=== PATIENT | female | born 1960 | race Two or more races ===

== ENCOUNTER 2021-02-11 11:59 | Outpatient (CLI) | payer OTHER ==
[2021-02-18] MEDS ORDERED: ASPI-992 PO (11:11)
[2021-02-18] MEDS ORDERED: RIVA10TA PO (11:11)
== END 2021-02-11 23:59 | disposition home or self-care (01) ==
LOC: LAB 11:59
PROVIDERS: ATTEND Specialist
DX: Z01.812 Encounter for preprocedural laboratory examination (principal); Z20.822 Contact with and (suspected) exposure to COVID-19
CPT/HCPCS: C9803; U0003

== ENCOUNTER 2021-02-16 05:08 | Inpatient (IN) | payer OTHER ==
[~2021-02-16] VITALS: Ht 160 cm; Wt 106.1 kg
--- NOTE | 2021-02-16 05:25 | NUR ---
MS RN ADMITTING NOTES PATIENT ARRIVED TO THE UNIT AT APPROXIMATELY 0525. PATIENT WAS ABLE TO WALK INDEPENDENTLY TO HIS ROOM. PATIENT WAS ORIENTED TO THE STAFF AND ROOM. PATIENT'S ALERT AND ORIENTED X4. PATIENT'S STABLE ON ROOM AIR. IV ACCESS WILL BE INSERTED IN SURGERY. PATIENT'S IN NO ACUTE DISTRESS AT THIS TIME. SAFETY MEASURES IN PLACE: BED LOCKED, SIDE RAILS UP X2, AND CALL LIGHT WITHIN REACH OF THE PATIENT. WILL CONTINUE TO MONITOR THE PATIENT.
[2021-02-16] MEDS ORDERED: POLYMYXIN B SULFATE 500,000 UNITS ONE (05:54)
[2021-02-16] MEDS ORDERED: ANESTHESIA TRAY IN PYXIS 1 EA TRAY MC ONE (05:54)
[2021-02-16] MEDS ORDERED: BUPIVACAINE 0.5 % PF 150 MG/30 ML VIAL ONE (05:55)
[2021-02-16] MEDS ORDERED: BUPIVACAINE MPF 0.5% W/EPI INJ 30 ML VIAL ONE (05:55)
[2021-02-16] MEDS ORDERED: HYDROMORPHONE INJ 2 MG/ML DISP.SYRIN ONE (06:07)
[2021-02-16] MEDS ORDERED: MIDAZOLAM HCL 2 MG/2ML VIAL ONE (06:07)
[2021-02-16] MEDS ORDERED: FENTANYL PF 250MCG/5ML AMPUL ONE (06:07)
[2021-02-16] MEDS ORDERED: SUCCINYLCHOLINE CHLORIDE 20 MG/ML VIAL ONE (06:08)
[2021-02-16] MEDS ORDERED: ROCURONIUM BROMIDE 50 MG/5 ML ONE (06:08)
[2021-02-16] MEDS ORDERED: FAMOTIDINE/PF INJ 20 MG/2 ML VIAL IV ONE (06:08)
[2021-02-16] MEDS ORDERED: BUPIVACAINE 0.25% 75 MG/30 ML VIAL ONE (06:09)
--- NOTE | 2021-02-16 06:10 | NUR ---
MS RN CLOSING NOTES PATIENT WAS TRANSFERRED APPROXIMATELY AT THIS TIME TO SURGERY. PATIENT WAS IN NO ACUTE DISTRESS UPON TRANSFER. BELONGINGS WERE KEPT IN THE PATIENT'S ROOM. PATIENT'S ADMISSION WAS NOT COMPLETED DUE TO BEING TRANSFERRED TO SURGERY. ENDORSED THE REST OF THE ADMISSION TO THE DAY SHIFT NURSE.
[2021-02-16] MEDS ORDERED: TRANEXAMIC ACID 3,000 MG in SODIUM CHLORIDE IRRIG SOLUTION 70 ML IR ONE (06:30)
[2021-02-16] MEDS ORDERED: OLME20TA13 PO (06:44)
--- NOTE | 2021-02-16 07:30 | NUR ---
MS RN OPENING NOTES PT IS CURRENTLY OUT FOR SURGERY AT THIS TIME. WILL CONTINUE WITH PLAN OF CARE PER SURGEON WHEN PT RETURNS.
[2021-02-16] MEDS ORDERED: DOCUSATE SODIUM 250 MG CAPSULE PO PRN (09:00)
[2021-02-16] MEDS ORDERED: BISACODYL SUPP (10 MG) 10 MG/SUPP.RECT SUPP.RECT RC PRN (09:00)
[2021-02-16] MEDS ORDERED: ZOLPIDEM TARTRATE 5 MG TABLET PO PRN (09:00)
[2021-02-16] MEDS ORDERED: HYDROCODONE/APAP 5/325MG TABLET PO PRN (09:00)
[2021-02-16] MEDS ORDERED: ONDANSETRON HCL/PF 4 MG/2 ML VIAL IVP PRN ×2 (09:00→18:30)
[2021-02-16] MEDS ORDERED: ACETAMINOPHEN 325 MG TABLET PO PRN ×2 (09:00→18:30)
[2021-02-16] MEDS ORDERED: HYDROMORPHONE 1 MG/1 ML DISP.SYRIN ONE (09:40)
--- NOTE | 2021-02-16 10:44 | NUR ---
MS RN NOTE: RECEIVED REPORT FROM NEERAJ,OR .
--- NOTE | 2021-02-16 10:45 | NUR ---
MS RN NOTES: RECEIVED PATIENT BACK FROM DAY SURGERY,ALERT/ORIENTED X 4.VITAL SIGNS STABLE.NO S/SX OF DISTRESS,BREATHING EVEN AND UNLABORED,DENIES PAIN AT THIS TIME.ON OXYGEN INHALATION AT 2LPM VIA NASAL CANNULA WITH O2 SAT 96%,IV ACCESS GAUGE 22 PATENT AND INTACT WITH IVF OF D5 1/2 NS BACK OF LEFT HAND.SAFETY MEASURES IN PLACED WITH BED LOCKED AND IN LOW POSITION WITH SIDE RAILS UP X 2,CALL LIGHT WITHIN REACH.LEFT KNEE DRESSING DRY AND INTACT.RECEIVED ORDERS FROM DR CHOI AND READ BACK AND CARRIED OUT.WE WILL CONTINUE TO MONITOR.
[2021-02-16 12:00] VITALS: BP 149/100
[2021-02-16] MEDS ORDERED: MAG HYDROX/AL HYDROX/SIMETH 30 ML UDC PO PRN (12:00)
[2021-02-16] MEDS ORDERED: CLONIDINE HCL 0.1 MG TABLET PO PRN (12:00)
[2021-02-16] MEDS ORDERED: diphenhydrAMINE HCL 25 MG CAPSULE PO PRN (12:00)
[2021-02-16] MEDS ORDERED: ONDANSETRON HCL/PF 4 MG/2 ML VIAL IV PRN (12:00)
[2021-02-16] MEDS ORDERED: MENTHOL/CETYLPYRD (CEPACOL) 1 LOZ LOZENGE PO PRN (12:30)
[2021-02-16] MEDS: HYDROMORPHONE 1 MG/1 ML DISP.SYRIN IM/IV/SC PRN ×3 (14:30→23:47)
[2021-02-16] MEDS: ANCEF 1 GM/50 ML D5W IV SCH ×2 (14:34→22:30)
[2021-02-16] MEDS: IV D5/0.45 NACL 1,000 ML IV PRN ×2 (14:52→22:40)
[2021-02-16] MEDS: HYDROCODONE/APAP 10/325MG TABLET PO PRN ×2 (15:49→21:30)
[2021-02-16 16:09] VITALS: BP 129/83
[2021-02-16] MEDS: DOCUSATE SODIUM 100 MG CAPSULE PO SCH (16:26)
--- NOTE | 2021-02-16 16:26 | NUR ---
SS consult : SS Consult requested for discharge planning. Pt. is a 60-year-old female who presents with left knee arthroplasty. Upon SS consult, pt. was A&O x4 and appeared well-kempt. Pt. presents with an euthymic mood and normal speech. Pt. provided appropriate eye contact. Pt. was cooperative throughout the SS consult. JULIA explored pt.s social support. Pt. stated she has two daughters and two sons who assist her at home. Pt. stated that her daughter Randee Damon is paid by [facility] for caregiving and helps her everyday at home. Pt. did not provide the phone number of the daughter. JULIA explored pt.s living situation. Pt. stated they live alone at [[address] [place] [id number]]. Pt. stated there are stairs at home and her children help her up and down the stairs. SW explored pt.s financial situation. Pt. stated they receive SSI disability. JULIA explored pt.'s DMEs. Pt. stated they use a walker at home. Pt. stated that a physical therapist has not seen her yet at the hospital. JULIA explored pt.s ADLs. Pt. stated her daughter helps her bathe, go to the restroom and cooks for her. JULIA explored pt.s substance abuse hx. Pt. denied substance abuse. JULIA explored pt.s psychiatric history. Pt. denies psychiatric diagnosis. Pt. denies visual/auditory hallucinations. Pt. denies SI/HI. Plan: Upon discharge, pt. stated they will return to [address] [place] [address], [address] with her daughter, Randee. Pt. stated that daughter will be able to provide private transportation to home. Pt. stated her daughter, Randee, is going to help her everyday at home as well as her other children. JULIA discussed with Josiane FOWLER who stated PT consult is still pending and possible HH if recommended by PT. Noted. JULIA provided pt. with senior resources including list of caregivers, disability transportation, meals on wheels, DME companies etc. Pt. accepted it. ABUSE PREVENTION: ELDER ABUSE HOTLINE (25/10) ADULT PROTECTIVE SERVICES HOTLINE LONG-TERM CARE [facility] SFV Region AREA ON AGING (HOTLINE) ADULT DAY HEALTH CARE CARE CENTERS: Private pay or Medi-bacilio funded adult day care [place] [facility] , [facility] , [facility] , [facility] Adult [facility] Health Care , [facility] Adult [facility] Health Care , [facility] Adult Daycare Center , [place] [facility] , [facility] , [place] ALZHEIMERS DISEASE/DEMENTIA: Alzheimers Association Helpline [place] [facility] www.alz.org/[facility] Department of Aging www.lacity.org Family Caregiver [place] www.caregiver.org [place] Caregiver Resources Center/Family Support www.[facility].org CANCER RESOURCES: Citizen Of [place] Cancer Society www.cancer.org Cancer Support Community www.CancerSupportVvsb.org: CancerCare www.cancercare.org [facility] Cancer Support Center www.[facility].org COMMUNITY HEALTH ASSOCIATIONS: AARP www.aarp.org ALS Association (ask for Myah) www.als.org Citizen Of [place] Diabetes Association www.diabetes.org Citizen [place] Heart Association www.heart.org Citizen [place] Lung Association www.lungusa.org Citizen Of [place] Parkinson Disease Association www.apdaparkinson.org Citizen Of [place] , www.redcross.org Arthritis Foundation www.arthritis.org Crohns & Colitis Foundation of Citizen Of [place] www.ccfa.org/chapters/thao National Multiple Sclerosis Society www.nationalmssociety.org Myasthenia Gravis Foundation www.myasthenia-ca.org National Stroke Association www.stroke.org CONSERVATORSHIP & GUARDIANSHIP: AARP Kimberly Medrano Legal Services Center for Health Care Rights Eldercare Information and Referral Global Supply Chain Vice President [facility]: [facility] Referral Service [facility] Legal Services Office of the Public Guardian [place] EYESIGHT DISORDER RESOURCES: Citizen Of [place] Macular Degeneration Foundation [facility] www.[facility] northinstitute.org GRIEF AND BEREAVEMENT RESOURCES: The [place] , [facility] THE [place] Connection , [facility] Bereave[facility] , [place] HEARING DISORDER RESOURCES: [place] Telephone Access Program Deaf and Disabled Telecommunications Program www.ddtp.[facility].ca.gov HearRx Hearing Centers ([place]) Better Hearing Systems , [place] GLAD ([facility] Agency on Deafness) V/ TTY; Room Server , [facility] Hearing [facility] -low income hearing aid assistance www.Anacor Pharmaceuticalhearingfoundation.org [place] [facility] [place] HELP AT HOME CAREGIVER SUPPORT: In Home Support Services (Must have Medi-Bacilio to be eligible) *Ask for a list of agencies that provide services to assist with care in the home. Local Senior Centers also have listings of care providers. HOME SAFETY MODIFICATIONS AND EQUIPMENT: Senior centers have additional referrals. [place] Inte[employer] Technologies and [place] Investment Dept. Handyworker Program (low income) or Visit http://hcidla.[facility].org/acw-swcocq-lj for more information National Seating and Mobility and/or ; Forever Active www.foreverDesktop Geneticsmed.Aviacode Stay Home Safe www.Stayhomesafe.com LIFE ALERT RESPONSE SYSTEM: Dstillery (formerly Media6Degrees)line Services 579-621-0300 www. Xirrus Life Alert 919-493-9221 www.Global Exchange Technologies Life Station 238-632-8100 www.Sky Frequencyation.Aviacode Safe Return 570-129-9144 www.alz.or/safereturn Cell Phones for Seniors www.Digital Management, Inc. MEALS AND FOOD PROGRAMS: [place] Meals on Wheels [phone] [place] Meals on Wheels [phone] [facility] [phone] [place] to the Homebound 775-220-0481 [place] to the Homebound [phone] [facility] to the Homebound [phone] [facility] to the Homebound [phone] Corey Carpenter [phone] [facility] [phone] ONE Generation [phone] [facility] [phone] [facility] [phone] Meals on Wheels [phone] For all ages: $6.85/ meal w side. Delivered M-F from 10 am-1pm. Application and payment is done over the phone. Frozen meals available for weekends. Emergency Food Coalition [phone] x2Brooke Ely Interior Surface Insulation Worker [phone] [facility] [phone] [facility] Outreach- Brown bag lunches [phone] [facility] [phone] MEAL/GROCERY DELIVERY PROGRAMS: Jessica [facility] Gourmet Meals [phone]- [facility] [phone]- [facility] Magic Kitchen [phone] Moms Meals [phone] (ask Elizondo for Discount Select grocery stores may provide delivery. MEDICAL INSURANCE SUPPORT SERVICES: Center for Health Care Rights [phone] Health Insurance Counseling/Advocacy Programs (HICAP)-Must have Medicare. Offers counseling for Medi-Bacilio eligibility [phone] [facility] Interior Surface Insulation Worker 787-898-0002 www.lifepoint hospitals.ca.gov Medicare [phone] www.socialsecurity.org Social Security [phone] SENIOR ACTIVITY PROGRAMS: *Contact a local senior center, adult school, recreation facility or community college for education, fitness, recreation, and social programs. Aquatic Therapy and Adapted Exercise programs through [facility] [phone] En[facility] [phone] www.[facility]/encore H2U- Senior Friends [phone] [place] Senior Programs [phone] www.oasisnet.org Suddenly 65 www.bdkwmiaj94.com SENIOR CENTERS: [facility] Center [phone] [facility] [phone] [facility] [phone] [facility] [phone] [facility] [phone] [facility] [phone] [facility] [phone] [facility] [phone] One Generation, [facility] [phone] [facility] [phone] [facility] [phone] [facility] [phone] [facility] [phone] TRANSPORTATION: Local [facility] Centers may have applications for transportation programs and additional resources. ACCESS Services [phone] Transportation for seniors and disabled persons 7 days a week requiring 254 hr. advance reservation. Must apply and register for program bia eligible. [employer] [phone] or [phone] Transportation for seniors and persons with ADA card/metro disabled card in the [facility]. M-F only. Must register for services. ONE GENERATION [phone] Serves 65 years + in conjunction with Bazaarvoice program. Must be registered with both programs. A to B Transport [phone] Provides wheelchair/gurney van service. Adult Medical Transport [phone] Accepts Medi-bacilio with prior authorization. Care Van [phone] Provides wheelchair Transport. [facility] Wide Transportation [phone] Provides gurney service [facility] [phone] Gurney Transport. [facility] Town Transportation [phone] wheelchair & gurney transport [facility] Transportation [phone] wheelchair & gurney transport Ida Non-Emergency Transport [phone] wheelchair & gurney transport [facility] Living [place] [phone] Short Term Transportation primarily for adults with disabilities on social security income. Nominal fee may apply and a reservation is required. [facility] Cab [phone] or [phone] SafeNet [phone] [place] [address] Referral Services -[phone] For additional programs & services VETERANS RESOURCES: Submissions for Aid and Attendance should be done directly to Federal VA office locatd at : [address] [facility] [phone] National Caregiver Support Line [phone] Bacilio [facility] Field Office [phone] [place] Department of Affairs [phone] Pension Information [phone]
[2021-02-16] MEDS: RIVAROXABAN 10 MG TABLET PO SCH (16:27)
[2021-02-16] MEDS ORDERED: Z GUARD REMEDY 2 OZ OINT TP PRN (18:30)
--- NOTE | 2021-02-16 18:57 | NUR ---
MS CLOSING RN NOTES: PATIENT RESTING COMFORTABLY IN BED,ALERT/ORIENTED X 4,NOT IN ANY DISTRESS.REMAINS ON OXYGEN INHALATION AT 2 LPM VIA NASAL CANNULA.SAFETY MEASURES MAINTAINED,ALL NEEDS MET.NO SIGNIFICANT CHANGE OF CONDITION NOTED.S/P LEFT TOTAL KNEE ARTHROPLASTY,SEEN BY DR BROWN WITH ORDERS,CARRIED OUT.C/O PAIN WITH PAIN MEDICATIONS GIVEN ORDERED.WILL ENDORSE CONTINUITY OF CARE TO THE INCOMING SHIFT NURSE
--- NOTE | 2021-02-16 18:59 | NUR ---
MS RN CLOSING NOTES PATIENT IS IN BED, RESTING COMFORTABLY. NO S/SX OF DISTRESS NOTED. NO C/O PAIN AT THIS TIME.ON OXYGEN INHALATION AT 2LPM VIA NASAL CANNULA WITH O2 SAT 96%,IV ACCESS GAUGE 22 PATENT AND INTACT. SAFETY MEASURES MAINTAINED. CALL LIGHT WITHIN REACH.LEFT KNEE DRESSING DRY AND INTACT. WILL ENDORSE CONTINUITY WITH PLAN OF CARE TO ONCOMING SHIFT.
--- NOTE | 2021-02-16 19:30 | NUR ---
RN OPENING NOTE PATIENT IN BED, AWAKE, A/O X 4. PATIENT IS S/P L TOTAL KNEE ARTHROPLASTY TODAY. DRESSING ON. PATIENT IS ON 2L O2 SUPPLEMENTATION, TOLERATING WELL, NOT IN ANY APPARENT DISTRESS. BREATHING EVEN AND UNLABORED. PATIENT HAS A ROSALES PRESENT, DRAINING YELLOW URINE. PATIENT HAS A L HAND 22 G WITH D5 1/2 NS ONGOING. PATIENT REPORTS PAIN 8/10 ON L KNEE AT THIS TIME. WILL MANAGE PAIN APPROPRIATELY. SAFETY MEASURES IN PLACE: BED LOCKED AND IN LOWEST POSITION, CALL LIGHT WITHIN REACH, SIDE RAILS UP. WILL MONITOR PATIENT CLOSELY.
[2021-02-16] MEDS: FAMOTIDINE (20 MG) 20 MG TABLET PO SCH (20:10)
[2021-02-16 20:12] VITALS: BP 144/75
--- NOTE | 2021-02-16 21:33 | NUR ---
RN NOTE PATIENT GIVEN NORCO 10/325 FOR PAIN LEVEL 7/10. WILL MONITOR PATIENT'S PAIN.
[2021-02-16] MEDS ORDERED: SENNOSIDES 8.6 MG TABLET PO PRN (22:00)
--- NOTE | 2021-02-16 23:47 | NUR ---
RN NOTE ADMINISTERED DILAUDID 0.5 MG FOR 11/11 PAIN ON L KNEE/EXTREMITY
[2021-02-17] MEDS: HYDROCODONE/APAP 10/325MG TABLET PO PRN ×2 (03:56→21:10)
[2021-02-17 04:21] LABS: BASOPHILS % (AUTO) 0.2 % (0.0-2.0); EOSINOPHILS % (AUTO) 0.2 % (0.0-6.0); HEMATOCRIT 32 % (33-45); HEMOGLOBIN 11.1 g/dL (11.5-14.8); LYMPHOCYTES % (AUTO) 10.2 % (20.0-44.0); MEAN CORPUSCULAR HGB CONC 34 g/dl (31.0-36.0); MEAN CORPUSCULAR VOLUME 94 fL (82-100); MONOCYTES % (AUTO) 9.7 % (2.0-12.0); NEUTROPHILS % (AUTO) 79.7 % (43.0-81.0); PLATELET COUNT (AUTO) 146 K/uL (150-450); RED BLOOD CELL COUNT(AUTO) 3.43 MIL/uL (4.0-5.2); WHITE BLOOD COUNT (AUTO) 10.1 K/uL (4.3-11.0)
[2021-02-17 04:33] LABS: CALCIUM, SERUM 7.9 mg/dL (8.5-10.1); CREATININE 0.7 mg/dL (0.6-1.3); MAGNESIUM 1.9 mg/dL (1.8-2.4); PHOSPHORUS 2.8 mg/dL (2.5-4.9); POTASSIUM 3.7 mmol/L (3.5-5.1)
[2021-02-17] MEDS: HYDROMORPHONE 1 MG/1 ML DISP.SYRIN IM/IV/SC PRN ×7 (06:31→19:52)
--- NOTE | 2021-02-17 06:39 | NUR ---
RN CLOSING NOTE PATIENT IN BED, AWAKE, A/O X 4. DRESSING ON L KNEE/LE. PATIENT IS ON 2L O2 SUPPLEMENTATION, TOLERATING WELL, NOT IN ANY APPARENT DISTRESS. BREATHING EVEN AND UNLABORED. PATIENT HAS A ROSALES PRESENT, DRAINING YELLOW URINE. PATIENT HAS A L HAND 22 G WITH D5 1/2 NS ONGOING. PATIENT REPORTS PAIN 8/10 ON L KNEE AT THIS TIME, GAVE DILAUDID 0.5 MG. SAFETY MEASURES IN PLACE: BED LOCKED AND IN LOWEST POSITION, CALL LIGHT WITHIN REACH, SIDE RAILS UP. ALL NEEDS MET AND ATTENDED, ALL ORDERS CARRIED OUT. WILL ENDORSE TO DAY SHIFT NURSE FOR ANDERSON.
[2021-02-17] MEDS: IV D5/0.45 NACL 1,000 ML IV PRN ×2 (06:56→21:08)
--- NOTE | 2021-02-17 07:30 | NUR ---
RN OPENING NOTE PATIENT IN BED, AWAKE, A/O X 4. DRESSING ON L KNEE/LE. PATIENT IS ON 2L VIA N/C @ 2LPM. TOLERATING WELL, BREATHING EVEN AND UNLABORED NOT IN ANY APPARENT DISTRESS. PATIENT HAS A ROSALES PRESENT, DRAINING YELLOW URINE. PATIENT HAS A L HAND 22 G , INTACT AND PATENT. PATIENT REPORTS PAIN 8/10 ON L KNEE AT THIS TIME, GAVE DILAUDID 0.5 MG. SAFETY MEASURES IN PLACE. BED LOCKED AND IN LOWEST POSITION, CALL LIGHT WITHIN REACH, SIDE RAILS UP. ALL NEEDS MET AND ATTENDED, ALL ORDERS CARRIED OUT. WILL CONTINUE TO MONITOR.
[2021-02-17 08:00] VITALS: BP 141/70
[2021-02-17] MEDS: FAMOTIDINE (20 MG) 20 MG TABLET PO SCH ×2 (09:02→21:10)
[2021-02-17] MEDS: DOCUSATE SODIUM 100 MG CAPSULE PO SCH ×2 (09:02→17:16)
[2021-02-17 16:00] VITALS: BP 140/76
[2021-02-17] MEDS: RIVAROXABAN 10 MG TABLET PO SCH (17:14)
--- NOTE | 2021-02-17 18:00 | NUR ---
MEDICATED MULTIPLE TIMES FOR LT. KNEE PAIN.ON CPM TODAY AND TOLERATING FAIRLY WELL.
--- NOTE | 2021-02-17 20:00 | NUR ---
MS RN OPENING NOTES PATIENT RESTING IN BED, ALERT/ORIENTED X 4, PT ABLE TO MAKE NEEDS KNOWN. PT STABLE ON 2 L OF OXYGEN VIA NASAL CANNULA, NO S/S OF DISTRESS OR SOB NOTED, BREATHING EVEN AND UNLABORED. PATIENT REPORTING 8/10 PAIN IN LEFT KNEE, DILAUDID 0.5 MG IV GIVEN ORDERED. DRESSING ON LEFT KNEE INTACT. ROSALES CATHETER IN PLACE AND DRAINING CLEAR YELLOW URINE. LEFT HAND #22G INTACT AND RUNNING D5 1/2 NS @ 125 ML/HR. SAFETY MEASURES IN PLACE: CALL LIGHT AND TABLE WITHIN REACH, SIDE RAILS UP X 2, BED LOCKED IN LOW POSITION, BED ALARM ON. WILL CONTINUE TO MONITOR PATIENT
[2021-02-17 20:03] VITALS: BP 131/74
[2021-02-17] MEDS ORDERED: BISACODYL SUPP (10 MG) 10 MG/SUPP.RECT SUPP.RECT RC ONE (21:59)
[2021-02-17] MEDS ORDERED: oxyCODONE IR immediate release 5 MG PO PRN (22:00)
[2021-02-17] MEDS ORDERED: BISACODYL SUPP (10 MG) 10 MG/SUPP.RECT SUPP.RECT RC PRN (22:00)
--- NOTE | 2021-02-17 22:00 | NUR ---
MS RN NOTES DID NOT GIVE ONE TIME ORDER FOR DULCOLAX SUPPOSITORY SCHEDULED AT 2158 BECAUSE IT WAS JUST GIVEN AT 2156 PER PATIENT'S REQUEST
[2021-02-18] MEDS: HYDROMORPHONE 1 MG/1 ML DISP.SYRIN IM/IV/SC PRN ×4 (00:31→15:30)
[2021-02-18] MEDS ORDERED: oxyCODONE IR immediate release 5 MG PO ONE ×2 (07:00→09:21)
--- NOTE | 2021-02-18 07:30 | NUR ---
MS RN OPENING NOTES RECEIVED PATIENT RESTING IN BED, ALERT/ORIENTED X 4. PT ABLE TO MAKE NEEDS KNOWN. ON ROOM AIR TOLERATING WELL. NO S/S OF DISTRESS OR SOB NOTED. BREATHING EVENLY AND UNLABORED. PATIENT REPORTING 9/10 PAIN IN LEFT KNEE, COMFORT MEASURES PROVIDED. DRESSING ON LEFT KNEE INTACT. ROSALES CATHETER IN PLACE AND DRAINING CLEAR YELLOW URINE. WITH IV ACCESS AT LEFT HAND #22G, SALINE LOCKED, INTACT AND PATENT. SAFETY MEASURES IN PLACE: CALL LIGHT AND TABLE WITHIN REACH, SIDE RAILS UP X 2. BED LOCKED IN LOW POSITION, BED ALARM ON. WILL CONTINUE TO MONITOR.
[2021-02-18 08:00] VITALS: BP 121/72
[2021-02-18] MEDS: FAMOTIDINE (20 MG) 20 MG TABLET PO SCH (08:07)
[2021-02-18] MEDS: DOCUSATE SODIUM 100 MG CAPSULE PO SCH (08:07)
[2021-02-18] MEDS: oxyCODONE IR immediate release 5 MG PO PRN ×2 (09:33→13:44)
[2021-02-18] MEDS ORDERED: RIVA10TA PO (11:11)
[2021-02-18] MEDS ORDERED: ASPI-992 PO (11:11)
--- NOTE | 2021-02-18 15:45 | NUR ---
MS ESTIMATOR JEWELRY NOTES PATIENT IS FOR DISCHARGE PER DOCTOR COLE'S ORDER. FOR DISCHARGE TO HOME. DISCHARGE INSTRUCTION AND EDUCATION PROVIDED AND EXPLAINED MEDICATIONS AND PRESCRIPTIONS. PATIENT VERBALIZED UNDERSTANDING. DISCHARGE FORM AND BELONGINGS LIST FORM SIGNED BY PATIENT. ALL BELONGINGS ACCOUNTED FOR. NAME WRIST BAND AND IV LINE REMOVED. PATIENT WAS ACCOMPANIED TO THE LOBBY VIA WHEELCHAIR. PATIENT WAS PICKED UP BY RELATIVE VIA PRIVATE CAR IN STABLE CONDITION. MD AND CHARGE NURSE ARE AWARE OF THE DISCHARGE.
[2021-03-02] MEDS ORDERED: ASPIRIN 325 MG TABLET PO SCH (09:00)
== END 2021-02-18 15:30 | disposition home or self-care (01) | DRG 470 ==
LOC: DS 05:08 → MED 05:09
PROVIDERS: ADMIT Nurse Practitioner Acute Care; ATTEND Nurse Practitioner Acute Care
PROC: 0SRD0J9 Replacement of Left Knee Joint with Synthetic Substitute, Cemented, Open Approach (ICD-10-PCS; principal; 2021-02-16)
DX: M17.12 Unilateral primary osteoarthritis, left knee (principal); Z68.41 Body mass index [BMI] 40.0-44.9, adult; E44.1 Mild protein-calorie malnutrition; D68.59 Other primary thrombophilia; I10 Essential (primary) hypertension; I25.10 Atherosclerotic heart disease of native coronary artery without angina pectoris; E66.01 Morbid (severe) obesity due to excess calories; K44.9 Diaphragmatic hernia without obstruction or gangrene; Y99.0 Civilian activity done for income or pay; Z82.49 Family history of ischemic heart disease and other diseases of the circulatory system; X58.XXXA Exposure to other specified factors, initial encounter; M19.90 Unspecified osteoarthritis, unspecified site; Z79.899 Other long term (current) drug therapy
CPT/HCPCS: 36415; 80048-TC; 80061-TC; 83735-TC; 84100-TC; 85025-TC; 87081-TC; 88305-TC; 88311-TC; 97116-TC; 97530-TC; 97760-TC; A4217; C1713; C1776; G0378; J0330; J0690; J1170; J2250; J2405; J2704; J2765; J3010; J3490; J7030; J7060; L1830